=== PATIENT | female | born 1990 | race Caucasian/White ===

== ENCOUNTER 2018-01-15 13:33 | Emergency (ER) | payer MEDICAID, SELFPAY ==
[2018-01-15 13:34] VITALS: BP 138/97; PULSE 111; RESP 16; TEMP 37.5; O2SAT 98; BMI 20.8
--- NOTE | 2018-01-15 13:48 | ED.VISSUMM ---
- ER Visit Summary Date of Service: 01/15/18 Chief Complaint: Fever and sore throat History of Present Illness: The patient is a 27 F who presents with fever, chills and sore throat. She denies nasal congestion, runny nose or cough. She states she has white spots in the back of her throat. She states she had a tickle in her throat on Thursday. Hoskins worse Thursday and . She denies headache. She denies eye pain or photophobia. She denies neck pain or stiffness. She denies rash. No ill contacts. She is breast-feeding. She has no antibiotic allergies. Physical Examination: Vital signs are marked for heart rate of 111. TA temperature is 99.5. Pupils equal round reactive paradoxic muscle intact. There is no photophobia. TMs normal. Nares patent with no discharge. Posterior pharynx reveals exudative tonsillitis. Uvula is midline. Trachea is midline. There are palpable tender anterior cervical nodes noted bilaterally. There is no stridor without station the neck. Heart is rapid and regular without murmur, gallop or rub. Lungs are clear to auscultation. There is no skin lesions noted. Test Results: None Emergency Department Course and Treatment: Patient was treated with Pen-Vee K 500 mg. Centor score is 4. Treatment Plan: Pen-Vee K for 10 days. Disposition: Discharged home with appropriate home-going instructions Impression: Exudative tonsillitis This note was generated with [employer] dictation software. It may contain incorrect words, spelling, and punctuation that were not noted in review of the chart prior to signing ED Disposition - Plan for ED Patient: Disposition: Home or Assisted Living Chief Complaint: Sore Throat Instructions: ED Tonsillitis Prescriptions: Penicillin V Potassium 500 mg PO 4X/DAY #40 tab Referrals: Rafal Lira MD [Primary Care Provider] - 1 Week if not improving Additional Instructions: 1. Salt water gargles 6-8 times a day 2. Chloraseptic Eldena as instructed on bile for discomfort or Cepastat lozenges 3. If you have difficulty swallowing or breathing, return to the emergency department
[2018-01-15] MEDS: Penicillin Vk 250 MG Tablet 500 MG PO (14:08)
== END 2018-01-15 14:10 | disposition home or self-care (01) ==
LOC: ED 14:02
PROVIDERS: Emergency Provider Emergency Medicine; Family Provider Family Medicine; PCP Family Medicine
DX: J03.90 Acute tonsillitis, unspecified (principal)
CPT/HCPCS: 99283